=== PATIENT | male | born 1970 | race Caucasian/White ===

== ENCOUNTER 2019-01-19 01:30 | Outpatient (CLI) | payer MEDICAID, SELFPAY ==
--- NOTE | 2019-01-19 07:50 | DI.RAD_ITS ---
SYMPTOM/DIAGNOSIS: M25.521, RT ELBOW PAIN RIGHT ELBOW: There are no prior comparison exams. There is no evidence of acute or old fracture. No joint effusion is seen. The joint spaces are well maintained. IMPRESSION: Negative right elbow.
== END 2019-01-19 01:50 ==
PROVIDERS: PCP Internal Medicine; Visit Provider Specialist/Technologist Athletic Trainer
DX: M25.521 Pain in right elbow (principal)
CPT/HCPCS: 73080

== ENCOUNTER 2021-06-08 17:42 | Emergency (ER) | payer OTHER, SELFPAY ==
[2021-06-08 17:59] VITALS: BP 127/76; PULSE 68; RESP 16; TEMP 36.6; O2SAT 99
--- NOTE | 2021-06-08 18:15 | DI.RAD_ITS ---
Exam(s) XR ELBOW LT COMPLETE EXAM: XR ELBOW LT COMPLETE CLINICAL HISTORY: Injury x 1 week, R/O Fracture. TECHNIQUE: 2D digital imaging was performed. COMPARISON: CR XR elbow RT complete from 01/19/2019 FINDINGS: BONES: No acute fracture is present. No bony destructive lesion is seen. JOINTS: The elbow is normally aligned. No joint effusion is seen. SOFT TISSUE: Normal. IMPRESSION: Unremarkable radiographs of the left elbow. DATA REPOSITORY: RADIATION DOSE DELIVERED:
--- NOTE | 2021-06-08 19:28 | DI.VRAD_ITS ---
PROCEDURE INFORMATION: Exam: XR Left Elbow Exam date and time: 06/08/2021 6:17 PM Age: 51 years old Clinical indication: Other: Injury x 1wk TECHNIQUE: Imaging protocol: XR Left elbow. Views: 3 or more views. COMPARISON: No relevant prior studies available. FINDINGS: Bones/joints: Normal. Soft tissues: Normal. IMPRESSION: No acute findings. Dictated and Authenticated by: Brody Lemus MD. Ordering:ALEJANDRO Mustafa MD
--- NOTE | 2021-06-08 19:49 | ED.GENADUL_ITS ---
Discharge Plan Disposition Patient Disposition: HOME Condition: Stable Discharge Details Clinical Impression: Other sprain of left elbow, initial encounter Primary Care Provider: Sharad Sauceda ED Provider: Moon Esparza Home Meds and New Rx's Prescriptions: No Action naproxen sodium [Aleve] 220 MG tablet 220 mg PO PRN PRNRF: 0 Discharge Instructions Instructions: Elbow Sprain (ED) Additional Instructions: Today the x-rays show no acute bony abnormality. Radiologist will do an overread within the next 12 to 24 hours. Rest ice compression elevation. Wear the sling for comfort. You are placed on orthopedic follow-up list if needed call them in 1 to 2 weeks if continued pain. After 2 to 3 days do some light stretches of your elbow. Please take Tylenol or Ibuprofen with food every 4-6 hours as needed for pain and swelling. Follow up with primary care provider in 3-5 days. Return to ED sooner if any worsening or concerns. Increase oral fluids. Referrals: Sharad Sauceda MD [Primary Care Provider] - 5 days Medical Decision Making 51-year-old male presents to the ER with left elbow pain status post lifting a piece of heavy equipment up onto lawOpaxower, he heard a pop and patient has had increased pain with flexion extension and supination. He did not take any Tylenol ibuprofen prior to arrival. Distal pulses and circulation movement intact wrist intact flexion extension. No obvious deformity. Discussed x-ray results with show no acute abnormality. We will give him a sling instructed to take Tylenol ibuprofen and follow-up with orthopedics. I do suspect a strain or sprain at this time. Imaging protocol: XR Left elbow. Views: 3 or more views. COMPARISON: No relevant prior studies available. FINDINGS: Bones/joints: Normal. Soft tissues: Normal. IMPRESSION: No acute findings. Thank you for allowing us to participate in the care of your patient. Dictated and Authenticated by: Brody Lemus MD This text was generated using [employer] system, please disregard any oddities of phrase or misspellings. HPI General Mode of arrival: ambulatory . Date/Time Provider Initiated Documentation: 06/08/21 18:04 . Limitations to Documentation: no limitations . Information obtained by: patient . HPI Narrative: 51-year-old male presents to the ER with left elbow pain status post lifting a piece of heavy equipment up onto lawnmower, he heard a pop and patient has had increased pain with flexion extension and supination. He did not take any Tylenol ibuprofen prior to arrival. Distal pulses and circulation movement intact wrist intact flexion extension. No obvious deformity. Related Data Home Medications Medication Instructions Recorded Confirmed naproxen sodium [Aleve] 220 mg PO PRN PRN 04/03/14 06/08/21 Allergies Allergy/AdvReac Type Severity Reaction Status Date / Time No Known Allergies Allergy Unverified 06/08/21 18:02 General Stated Complaint: Orthopedic WILI: 4 Review of Systems All systems reviewed & are unremarkable except as noted in HPI and below ENT Ears, Nose, Mouth, and Throat: Denies neck pain Musculoskeletal Musculoskeletal: Reports as per HPI, Denies deformity, Reports arthralgias (Left Elbow), Denies neck pain, Denies numbness and Reports stiffness Neurologic Neurologic: Denies numbness PFSH Social History Smoking/Tobacco Use Status: Current every day Smoking risk assessment performed?: Yes Drug use: Never Exam Const General: cooperative, healthy appearing, well developed and well groomed Nutritional Appearance: average body habitus Orientation: alert, awake and oriented x3 Extrem General: normal to inspection, capillary refill normal and no joint enlargement Right upper extremity: normal to inspection Left upper extremity: normal to inspection, normal capillary refill and elbow/forearm Details: tenderness Location: of the olecranon, of the lateral epicondyle Details: with resisted supination and of the medial epicondyle Details: with resisted supination; no edema Course Vital Signs Vital signs: Vital Signs Temperature 36.6 C 06/08/21 17:59 Pulse 68 06/08/21 17:59 Respiratory Rate 16 06/08/21 17:59 Blood Pressure 127/76 06/08/21 17:59 Pulse Oximetry 99 06/08/21 17:59 Temperature 36.6 C 06/08/21 17:59 Temperature Source Skin 06/08/21 17:59 Pulse 68 06/08/21 17:59 Respiratory Rate 16 06/08/21 17:59 Respiratory Effort Non-Labored 06/08/21 17:59 Blood Pressure 127/76 06/08/21 17:59 Blood Pressure Position Sitting 06/08/21 17:59 Pulse Oximetry 99 06/08/21 17:59 Oxygen Delivery Method Room Air 06/08/21 17:59 Oxygen Flow Rate 0 06/08/21 17:59 Pain Level 8 06/08/21 17:59
[2021-06-08 19:57] VITALS: BP 160/84; PULSE 65; RESP 20; TEMP 36.7; O2SAT 98
== END 2021-06-08 19:58 | disposition home or self-care (01) ==
PROVIDERS: Emergency Provider Registered Nurse Emergency; PCP Internal Medicine
DX: S53.492A Other sprain of left elbow, initial encounter (principal); X50.0XXA Overexertion from strenuous movement or load, initial encounter
CPT/HCPCS: 99283; 73080

== ENCOUNTER 2021-07-08 14:09 | Inpatient (IN) | payer OTHER, SELFPAY ==
[2021-07-08] VITALS (7 sets, daily range): BP systolic 91–139; BP diastolic 51–86; PULSE 56–72; RESP 14–18; TEMP 35.6–37; O2SAT 94–100; BMI 27.0
--- NOTE | 2021-07-08 14:00 | DI.RAD_ITS ---
Exam(s) XR TIB/FIB LT EXAM: XR TIB/FIB LT CLINICAL HISTORY: fall. TECHNIQUE: 2D digital imaging was performed. COMPARISON: No exams were available for comparison FINDINGS: There is a spiral fracture at the junction of the mid and distal thirds of the tibia with mild displa cement. There is also an oblique fracture in the proximal fibula involving the neck and proximal myke physis. There is no obvious tibial plateau fracture. IMPRESSION: Fractures of the tibia and fibula as described above. DATA REPOSITORY: RADIATION DOSE DELIVERED:
[2021-07-08] MEDS: fentaNYL 100 MCG/2 ML VIAL IVP (14:17)
--- NOTE | 2021-07-08 14:41 | ED.GENADUL_ITS ---
Discharge Plan Disposition Patient Disposition: [facility] Condition: Stable Discharge Details Clinical Impression: Left tibial fracture, Closed fracture of fibula, proximal, left Admit Date/Time: 07/08/21 19:54 Admit Provider: Andrew Bo Attending Provider: Andrew Bo Primary Care Provider: Sharad Sauceda ED Provider: Moon Esparza Discharge Data Discharge Date/Time-TO BE ENTERED AT DEPARTURE: 07/08/21 17:42 Medical Decision Making <SARAH Benz - Last Filed: 07/09/21 08:17> Patient is a pleasant 51-year-old male presenting today with chief complaint of left lower extremity pain. He reports that prior to arrival he fell on ice and injured his LLE. Has not been able to move leg or ambulate since. EMS noted deformity. He denies striking his head. No loss of consciousness. Denies any neck pain, back pain, shortness of breath. He states that he has chronic pain in his left shoulder and left elbow which he is being evaluated for an upcoming weeks. No acute change in his, did not strike his at the time of the incident. Patient denies any numbness or tingling in the left lower extremity. On exam, patient appears uncomfortable. Exam of his head, neck, chest and abdomen pelvis unremarkable. No saddle paresthesias. No spinal tenderness. He does have a notable prominence of the left lower extremity with foot externally rotated almost 90 degrees compared to the knee. Deformity appears to be at midshaft. No open wounds. 2+ distal, patient is able to move toes and sensation is intact in his foot. Patient was given 100 mcg of IM fentanyl. He had had IV fentanyl prior to arrival. Patient works it was removed and towel splint applied which signi ficantly improved discomfort. Reviewed the x-ray, concern for displaced midshaft tibia fracture as well as a proximal fibula fracture. Have requested consultation of Dr. Alexander with orthopedics. Dr. Alexander reviewed the XR. He advised CT of ankle. Will perform surgery for fixation tonight or tomorrow morning. Discussed recommendation with the patient. He is agreeable to this plan. 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 Spoke with patients , Tiffany, at patients request. She prefers home # [phone]. Cell phone [phone]. At the end of my shift, care transioned to Moon Esparza NP with imaging and disposition pending. <Moon Esparza - Last Filed: 07/08/21 18:10> Care assumed from provider (SARAH Solano) Please see their initial HPI, PE, and documentation. Discussed patient details and case and pending workup and disposition. Patient is hemodynamically stable, and alert and oriented. At this point we are awaiting the OR at approximately 5 PM. 1642: Dr Alexander with Orthopedics here at for patient evaluation. 1736: OR anesthesia and staff here for patient evaluation. Patient transferred to OR in hemodynamically stable condition. HPI <SARAH Benz - Last Filed: 07/09/21 08:17> General Mode of arrival: EMS . Date/Time Provider Initiated Documentation: 07/08/21 14:09 . Limitations to Documentation: no limitations . Information obtained by: patient, EMS and RN notes reviewed . History of Present Illness 51 year old M presents to the emergency department with the chief complaint of LLE pain, deformity after fall, described as severe, with intensity rated at 8. Quality is described as sharp, and is localized to the left and lower extremity. Patient reports no radiation. Patient started experiencing this hour(s) (1) and it has been constant. Immobilization improves symptom(s), Movement worsens symptoms . Patient notes no other symptoms.. Patient did receive the following treatments prior to arrival, other (fentanyl) Related Data Home Medications Medication Instructions Recorded Confirmed naproxen sodium [Aleve] 220 mg PO PRN PRN 04/03/14 07/08/21 Allergies Allergy/AdvReac Type Severity Reaction Status Date / Time No Known Allergies Allergy Unverified 07/08/21 14:18 General Stated Complaint: Orthopedic WILI: 3 Review of Systems <SARAH Benz - Last Filed: 07/09/21 08:17> Constitutional Constitutional: Reports as per HPI, Denies chills, Denies fever(s) and Denies headache(s) Eyes Eyes: Reports as per HPI, Denies change in vision and Denies loss of vision ENT Ears, Nose, Mouth, and Throat: Denies headache(s) Cardiovascular Cardiovascular: Reports as per HPI, Denies chest pain and Denies dyspnea Respiratory Respiratory: Reports as per HPI, Denies cough, Denies pain on inspiration and Denies dyspnea Gastrointestinal Gastrointestinal: Reports as per HPI, Denies abdominal pain, Denies nausea and Denies vomiting Genitourinary Genitourinary: Reports as per HPI and Denies urinary incontinence Musculoskeletal Musculoskeletal: Reports as per HPI Integumentary/Breasts Skin/Breast: Reports as per HPI and Denies rash Neurologic Neurologic: Reports as per HPI, Denies abnormal movements, Denies abnormal speech, Denies headache(s), Denies lack of coordination, Denies localized weakness, Denies loss of vision and Denies paresthesias PFS <SARAH Benz - Last Filed: 07/09/21 08:17> Active Problem List (Updated 07/08/21 @ 17:33 by Sharad Alexander MD) Closed fracture of fibula, proximal, left (Acute) Lateral epicondylitis, left elbow (Acute) Medical History (Updated 07/08/21 @ 17:33 by Sharad Alexander MD) Left tibial fracture Social History (Updated 07/08/21 @ 17:09 by Sharad Alexander MD) Smoking/Tobacco Use Status: Current, status unknown Smokeless tobacco user: other Smoking risk assessment performed?: Yes Alcohol Intake: never Drug use: Never Substance use type: does not use Current gender identity: male Do you feel safe at home: Yes Do you feel safe in your relationship?: Yes Exam <SARAH Benz - Last Filed: 07/09/21 08:17> Const General: cooperative, healthy appearing, uncomfortable, no acute distress, well developed and well groomed Nutritional Appearance: average body habitus and well nourished Orientation: alert, awake and oriented x3 [facility] Head: normal to inspection, no palpable skull fracture, normocephalic and atraumatic Ears: hearing grossly normal bilaterally General nose exam: external nose normal Mouth: oral mucosae normal, lip normal and tongue normal Throat: posterior oropharynx normal Eyes General: appearance normal, both eyes and all related structures Alignment and Position: alignment normal Periorbital: periorbital findings normal Conjunctivae: conjunctivae normal Pupils: PERRL EOM: EOM intact bilaterally Neck Neck: normal visual inspection, full ROM, trachea midline and supple Chest Chest: normal inspection of the chest, normal palpation of entire chest wall, no crepitus and no localized rib tenderness Resp Effort & Inspection: normal respiratory effort, able to speak in complete sentences and no respiratory distress Auscultation: clear to auscultation bilaterally, no rales, no rhonchi and no wheezes Cardio Rate: regular rate Rhythm: regular rhythm Heart Sounds: S1 normal and S2 normal GI Inspection: normal to inspection, no abdominal wall ecchymosis, no edema and non-distended Palpation: soft, not rigid and nontender Auscultation: normal bowel sounds Back/Spine/Pelvis Cervical Spine: normal cervical lordosis and cervical ROM normal Pelvis: no pain with anterior-posterior compression and no pain with lateral compression Skin General skin exam: no rashes or lesions noted Lesions: no lesions Rashes: no rashes Trauma: no lacerations or abrasions Wounds: no wounds Neuro General: patient alert, patient awake, patient oriented x3, gait normal, tone normal and moves all extremities Cranial Nerves: CN's II-XI intact bilaterally Cognition: normal cognition Speech: speech normal Gait: gait abnormal Motor: muscle tone normal throughout and strength 5/5 throughout Sensory Exam: no sensory deficits noted (no saddle paresthesias) Extrem General: capillary refill normal and no calf tenderness Ankle/foot/toe images: 1. Deformity noted. External rotation of the foot compared to alignment of the knee. Sensation intact. Intact capillary refill. Able to move toes. No pain with palpation about the knee Psych Appearance: grossly normal and well kempt Mental Status: mental status grossly normal Speech and Movement: speech and movement normal Course <SARAH Benz - Last Filed: 07/09/21 08:17> Vital Signs Vital signs: Vital Signs Temperature 37.0 C 07/08/21 14:09 Pulse 70 07/08/21 14:09 Respiratory Rate 14 07/08/21 14:09 Blood Pressure 139/86 07/08/21 14:09 Pulse Oximetry 98 07/08/21 14:09 Temperature 37.0 C 07/08/21 14:09 Temperature Source Temporal Artery Scan 07/08/21 14:09 Pulse 70 07/08/21 14:09 Respiratory Rate 14 07/08/21 14:09 Blood Pressure 139/86 07/08/21 14:09 Blood Pressure Position Supine 07/08/21 14:09 Pulse Oximetry 98 07/08/21 14:09 Oxygen Delivery Method Room Air 07/08/21 14:09 Oxygen Flow Rate 0 07/08/21 14:09 Pain Level 8 07/08/21 14:17 Sign Out <SARAH Benz - Last Filed: 07/09/21 08:17> Sign Out Data: Sign Out Comment: Care transitioned to Moon Esparza NP. Patient has displaced tib/fib fracture after fall. NPO since yesterday. Planning for OR at 5pm. May need pain meds. Has had 100mcg Fentanyl and 1000mg APAP. COVID pending. Last updated by Roxi Pedraza PA at 07/08/21 16:01
--- NOTE | 2021-07-08 15:03 | DI.VRAD_ITS ---
PROCEDURE INFORMATION: Exam: XR Left Tibia and Fibula Exam date and time: 07/08/2021 2:13 PM Age: 51 years old Clinical indication: Pain; Ankle; Left; Patient HX: Fall TECHNIQUE: Imaging protocol: XR Left tibia and fibula. Views: 2 views. COMPARISON: CR LEFT FOOT COMPLETE 02/04/2016 9:11 PM FINDINGS: Bones/joints: There is a spiral fracture of the distal tibial shaft. There appears to be mild comminution and minimal impaction. There is minimal anterior offset. There is an oblique fracture of the proximal fibula. Soft tissues: Normal. IMPRESSION: Proximal fibular and distal tibial fractures. Dictated and Authenticated by: Akilah Barahona MD. Ordering:KAYODE Diane MD
[2021-07-08] MEDS: Lactated Ringers 1,000 ML 250 ML IV (15:04)
[2021-07-08] MEDS: ACETAMINOPHEN 1,000 MG/100 ML BTL 400 MG IVPB (15:15)
[2021-07-08 15:47] LABS: Source Nasal/Nares
--- NOTE | 2021-07-08 16:13 | W.ANESPRE ---
General Info Date of Service Date Performed: 07/08/21 Height: 5 ft 6 in Weight: 76 kg Body Mass Index (BMI): 27.0 Meds Allergies and Home Medications Allergies Allergy/AdvReac Type Severity Reaction Status Date / Time No Known Allergies Allergy Unverified 07/08/21 14:18 Home Medication Medication Instructions Recorded naproxen sodium [Aleve] 220 mg PO PRN PRN 04/03/14 Current Visit Medications: Current Medications Generic Name Dose Route Start Last Admin Trade Name Freq PRN Reason Stop Dose Admin Ringer's Solution 1,000 mls @ 250 mls/hr 07/08/21 14:12 07/08/21 15:04 IV 07/08/21 18:11 250 mls/hr BOLUS ONE Administration PFS Active Problems Active Problems: Problem Status Onset Code Lateral epicondylitis, left elbow M77.12 Medical History Active Problem List Lateral epicondylitis, left elbow (Acute) Tobacco Smoking/Tobacco Use Status: Former Tobacco Use Alcohol Alcohol Intake: never Substance Use Substance use: Never Substance use type: does not use Vital Signs and Lab Results Vital Signs Most Recent Vital Signs in EMR: Most Recent Vital Signs Temp Pulse Resp BP Pulse Ox 37.0 C 70 14 139/86 98 07/08/21 14:09 07/08/21 14:09 07/08/21 14:09 07/08/21 14:09 07/08/21 14:09 Lab Results Blood Type / Crossmatch: No Data to Display Complete Blood Count: No Data to Display Complete Metabolic Panel: No Data to Display Liver Function Panel: No Data to Display Coagulation Panel: No Data to Display Cardiac Panel: No Data to Display Arterial Blood Gas: No Data to Display Venous Blood Gas: No Data to Display Pancreas Panel: No Data to Display Thyroid Panel: No Data to Display Infectious Disease: Coronavirus (COVID-19)(PCR) POSITIVE (Negative) A* 07/08/21 15:19 07/08/21 Coronavirus 2019 Source Nasal/Nares 07/08/21 15:19 07/08/21 Blood Cultures: No Data to Display Toxicology Panel: No Data to Display Anesthesia Assessment and Plan Anesthesia History Personal History: No History of Anesthesia Complications Family History: No Family History of Anesthesia Complications Exercise Tolerance Exercise Tolerance: Metabolic Equivalents>4 Cardiac & Pulmonary Exam Cardiac Exam: Normal S1/S2 Heart Sounds Pulmonary Exam: Clear Bilateral Breath Sounds Implantable Cardiac Device Does patient have a Pacemaker or an ICD?: No Airway Exam Known Difficult Airway: No Mallampati Class: 3 Mouth Opening: Narrow (< 3cm) Thyromental Distance: Greater than 3 cm Facial Hair: Full Hitchcock Neck Range of Motion: Full ROM Neck Circumference: Normal Teeth Condition: Generalized Poor Dentition ASA Classification ASA Score: ASA 2 Emergency Case?: Yes NPO Status NPO Status: NPO Clears >2 hours, Solids >8 hours Anesthesia Plan Resuscitation Status: Full Code Anesthesia Technique: General Anesthesia Airway Planned: Endotracheal Tube Monitors Used: Standard Monitors Preoperative Comments:: 51 yo male with tib/fib fracture for ORIF. COVID + Sig PMHx: former smoker, denies major cardiac/pulmonary/neuro/liver/kidney issues. Per ED may have some increasing numbness in lateral side of foot. Also that he has not tolerated movement very well. Plan: spinal. consent performed in the ED, pt agrees to proceed.
--- NOTE | 2021-07-08 16:15 | DI.CT_ITS ---
Exam(s) CT LOWER EXTREMITY LT WO EXAM: CT LOWER EXTREMITY LT WO CLINICAL HISTORY: Fracture. TECHNIQUE: Imaging Protocol: Axial computed tomography images with coronal and sagittal reformatted images were created and reviewed. CONTRAST MATERIAL: Intravenous: Omnipaque 350 Contrast volume:structured data in ml Contrast route:I V - Oral: yes / no COMPARISON: CR,XR XR TIB/FIB LT from 07/08/2021 FINDINGS: OSSEOUS: There is an oblique non comminuted fracture at the junction of the mid and distal thirds of the tibia with moderate displacement. No malleolar fractures nor widening of the mortise. Talar dome appears unremarkable. There is fracture of the fibular neck and proximal diaphysis not included in the field of view of thi s CT study. IMPRESSION: Oblique non comminuted fracture of the tibia as described above. RADIATION DOSE DELIVERED: 330.75mGy.cm Total DLP DATA REPOSITORY: All CT scans at this facility are submitted to the National Radiology Data Registry (NRDR) Dose Index Registry (DIR) with the [employer] (ACR). RADIATION OPTIMIZATION: All CT scans at this facility use at least one of these dose optimization te chniques: automated exposure control; mA and/or kV adjustment per patient size (includes targeted exa ms where dose is matched to clinical indication); or iterative reconstruction.
--- NOTE | 2021-07-08 16:30 | DI.RAD_ITS ---
Exam(s) XR TIB/FIB LT EXAM: XR TIB/FIB LT CLINICAL HISTORY: LEFT TIB/FIB FRACTURE. TECHNIQUE: 2D digital imaging was performed. COMPARISON: X-rays 07/08/2021 reviewed FINDINGS: Intraoperative fluoroscopy was provided during open reduction internal fixation surgery. See procedu re report for details Total fluoroscopy time 135 seconds Total clipped of dose 4.04mGy IMPRESSION: DATA REPOSITORY: RADIATION DOSE DELIVERED:
--- NOTE | 2021-07-08 16:39 | W.PM.HP.N ---
Date of service: 07/08/21 Time of Service: 16:40 Assessment and Plan Assessment and plan (1) Closed fracture of fibula, proximal, left: Status: Acute Assessment and plan: 51M with low energy left displaced spiral tibia fracture and proximal fibula fracture. Discussed risks and benefits of operative vs non-op treatment and patient elected to proceed with surgery. Discussed risks including but not limited to bleeding, infection, damage to nerves and vessels, need for further surgery, blood clots, stiffness, wound healing problems, malunion, nonunion, heart attack, stroke and . He signed informed consent. History of Present Illness 51M fall on ice today with leftleg injury,found to have left tibia fracture. no numbness/tingling. no prior injuries. last ate last night. no LOC or head-strike. Review of Systems Narrative: As per HPI Denies chest pain, SOB, trouble breathing [facility] Active Problem List (Updated 07/08/21 @ 17:33 by Sharad Alexander MD) Closed fracture of fibula, proximal, left (Acute) Lateral epicondylitis, left elbow (Acute) Medical History (Updated 07/08/21 @ 17:33 by Sharad Alexander MD) Left tibial fracture Social History (Updated 07/08/21 @ 17:09 by Sharad Alexander MD) Smoking/Tobacco Use Status: Current, status unknown Smokeless tobacco user: other Smoking risk assessment performed?: Yes Alcohol Intake: never Drug use: Never Substance use type: does not use Current gender identity: male Do you feel safe at home: Yes Do you feel safe in your relationship?: Yes Meds Allergies and Home Medications Allergies Allergy/AdvReac Type Severity Reaction Status Date / Time No Known Allergies Allergy Unverified 07/08/21 14:18 Home Medications Medication Instructions Recorded Confirmed Type naproxen sodium [Aleve] 220 mg PO PRN PRN 04/03/14 07/08/21 History Exam Narrative Exam Narrative: awake, alert, nad heart Rrr Lungs ctab Left lower extremity soft, compressible. silt sp/dp/t/s/s but slightly decreased dorsal and volar 3rd toe and 5th toe. EHL/FHL intact BCR in toes 2+ DP pulse Results Labs Labs: Laboratory Results - last 24 hr 07/08/21 07/08/21 15:19 15:21 COVID-19 Source Nasal/Nares Cancelled SARS-CoV-2 (PCR) Cancelled Last Vital Signs Temp 37.0 C 07/08/21 14:09 Pulse 70 07/08/21 14:09 Resp 14 07/08/21 14:09 BP 139/86 07/08/21 14:09 Pulse Ox 98 07/08/21 14:09
[2021-07-08 16:46] LABS: COVID-19 PCR POSITIVE (Negative)
--- NOTE | 2021-07-08 16:55 | DI.VRAD_ITS ---
PROCEDURE INFORMATION: Exam: CT Left Lower Extremity With Contrast Exam date and time: 07/08/2021 4:22 PM Age: 51 years old Clinical indication: Injury or trauma; Fall; Fracture, traumatic; Closed fracture; Fibula and tibia; Left TECHNIQUE: Imaging protocol: CT of the Left lower extremity with intravenous contrast was performed. Radiation optimization: All CT scans at this facility use at least one of these dose optimization techniques: automated exposure control; mA and/or kV adjustment per patient size (includes targeted exams where dose is matched to clinical indication); or iterative reconstruction. COMPARISON: CR XR TIB/FIB LT 07/08/2021 2:46 PM FINDINGS: Bones/joints: There is an oblique distal tibial fracture with mild anterior displacement. There is no significant impaction. A proximal fibular fracture is not included on this exam. Soft tissues: Normal. IMPRESSION: Distal tibial oblique fracture with minimal anterior displacement. Dictated and Authenticated by: Akilah Barahona MD. Ordering:ALEJANDRO Mustafa MD
[2021-07-08] MEDS: Bupivacaine 0.25% Pres-Free 30 ML VIAL (19:16)
--- NOTE | 2021-07-08 19:22 | W.PM.OP ---
Date of service: 07/08/21 Time of Service: 19:22 Operative Note Operative Note DATE OF PROCEDURE: 07/08/21 PRE-OP DIAGNOSIS: Left tibia and fibula fracture POST-OP DIAGNOSIS: same PROCEDURE: Intramedullary nailing left tibia SURGEON: Sharad Alexander ASSISTING SURGEON: Andrew Bo HUMAN RESOURCES BENEFITS SPECIALIST: Jitendra Clark ANESTHESIA TYPE: Local By Surgeon and Spinal Refer to Anesthesia Record ESTIMATED BLOOD LOSS: 100 COMPLICATIONS: None Patient was transported to: PACU Patient's condition: stable Implants: Synthes tibial EX nail 10 mm x 330 mm, 4 x 5.0 mm screws Indications: The patient is a 51M who presented after a fall with a left displaced tibia fracture. We discussed options for management including surgery and no surgery and he elected to proceed with IMN left tibia. Findings: Reducible tibia fracture Procedure Description: The patient was identified upon entering the room. He was marked in the ER on the LLE. He was given spinal anesthesia by the anesthesia team. He was transferred to the operative bed in supine position. All bony prominences were well-padded. The LLE was prepped/draped in usual sterile fashion and he recieved 2g Ancef and TXA prior to incision. We marked out our incision lateral over the edge of the patella going from the superior pole distally approximately 5 cm. We made 2 stab incisions distally overlying the fracture one anterior and one just off the medial crest of the tibia. We then placed a eacof-pi-ovfyx Garcia clamp and reduced the tibia and held this in place using the clamp. We confirmed the reduction using intraoperative fluoroscopy. We carried out the incision after injecting 10 cc of quarter percent bupivacaine without epinephrine. We then incised the skin using a 15 blade. We carried this down to the level of the retinaculum. This was incised staying extrasynovial. Incision in the retinaculum was carried out using a Metzenbaum scissors. We then bluntly dissected to the anterior aspect of the tibia. We marked out our starting point just medial to the lateral tibial spine and just off the anterior aspect of the plateau. We then placed our starting guidewire. We confirmed placement using intraoperative fluoroscopy. We then drilled this towards the posterior cortex of the tibia. We then used the awl in order to open the proximal tibia. We then placed the ball-tipped guidewire in the center center position distally past the fracture. We then began sequentially reaming starting from 8.5 mm and reaming up to 12 mm in diameter. We then placed the 330 mm x 10 mm diameter Synthes expert nail past the fracture. We had the guidewire placed distally center center position. Once the nail was in position and satisfied with the position we then began placing interlocking screws. I placed 2 proximal interlocking screws one direct medial to lateral and 1 anteromedial to posterior lateral. These were 5.0 millimeter screws and we used the correct length screw for each of these. We placed them after making some stab incisions in the skin and then dissecting bluntly down with a snap. We then placed 2 distal medial to lateral interlock screws using perfect cher-ae heights technique first making a stab incision and then spreading with the snap. These were also both 5.0 millimeter screws. Satisfied with position of all hardware then remove the outrigger. The wounds were then copiously irrigated. The retinaculum was closed with #1 Vicryl sutures. The subcutaneous tissues were then closed with 0 Vicryl sutures 2-0 Vicryl sutures and 3-0 Monocryl for the skin for the longitudinal incision. Stab incisions were closed with 3-0 nylon. The wounds were then dressed with Xeroform sterile gauze ABD pads web roll and a posterior well-padded splint. The patient was then awakened from anesthesia by the anesthesia team. He was then transferred to the postoperative bed and taken to the postoperative care unit in stable condition having suffered no apparent untoward events. All sponge needle instrument counts were correct at the end of the case.
[2021-07-08] MEDS: ceFAZolin 1 GM/50 ML BAG IVPB (20:30)
[2021-07-08] MEDS: Aspirin E.C. 81 MG TABEC PO (20:30)
[2021-07-08] MEDS: Acetaminophen 500 MG TAB 1000 MG PO (22:54)
[2021-07-08] MEDS: Gabapentin 300 MG CAP PO (22:55)
[2021-07-09 00:28] VITALS: BP 113/98; PULSE 75; RESP 14; TEMP 36.3; O2SAT 95
[2021-07-09] MEDS: oxyCODONE 5 MG TAB PO ×3 (03:04→11:30)
[2021-07-09] MEDS: ceFAZolin 1 GM/50 ML BAG IVPB ×2 (03:04→07:58)
[2021-07-09 04:03] VITALS: BP 124/74; PULSE 69; RESP 14; TEMP 35.7; O2SAT 94
[2021-07-09 07:56] VITALS: BP 121/77; PULSE 66; RESP 18; TEMP 36.2; O2SAT 95
[2021-07-09] MEDS: Normal Saline Flush 10 ML SYR (07:57)
[2021-07-09] MEDS: Pantoprazole 40 MG TABCR PO (07:58)
[2021-07-09] MEDS: Aspirin E.C. 81 MG TABEC PO (07:58)
--- NOTE | 2021-07-09 09:57 | W.PM.DS.N ---
DS: Diagnosis Discharge Diagnosis (1) Closed fracture of fibula, proximal, left: Start date: 07/09/21 Start time: 09:58 Status: Acute Asessment and Plan: Patient treated with left tibia IMN on 07/08/21. Plan for aspirin 81 mg bid for 4 weeks, f/u with Dr. Alexander at [facility] [place] 2 weeks with splint removal. (2) Left tibial fracture: Status: Acute Discharge Plan Disposition Patient Disposition: HOME Condition: Stable Discharge Details Reason For Visit: Fracture upper and lower end of tibia Admit Date/Time: 07/08/21 19:54 Admit Provider: Andrew Bo Attending Provider: Andrew Bo Primary Care Provider: Sharad Sauceda Hospital Course Hospital Course: The patient was admitted for left tibia fracture and treated with intramedullary nailing on 07/08/21. He did well overnight and by 07/09/21 he was tolerating PO, ambulating, pain was well-controlled, urinating and deemed medically ready for safe discharge to home. He worked with PT. Home Meds and New Rx's Prescriptions: No Action naproxen sodium [Aleve] 220 MG tablet 220 mg PO PRN PRNRF: 0 Discharge Instructions Instructions: ORIF of a Leg Fracture (DC) Additional Instructions: Patient should be non weight bearing of the left lower extremity, using crutches for ambulation. Oxycodone for pain control along with Tylenol and Aleve or Advil. ASpirin 81 mg twice daily for DVT prophylaxis. Follow-up in [address] Alexander at [facility] for splint removal, suture removal, and transition to a walker boot. Call [phone] to schedule an appointment if you do not hear from them after Wednesday 07/11. No PT until after follow-up. Activity:: NWB Left Leg Equipment/Supplies:: Crutches Diet:: As Tolerated Discharge Orders Discharge Orders: Discharge Order (Routine); Ordered 07/09/21 Ordered By: Sharad Alexander DS: Summary Time Spent with Patient providing and/or coordinating discharge services: Greater than 30 minutes Status at Discharge Functional status at discharge: uses cane/walker Overall status at discharge: patient is progressing back to baseline Mental Status: mental status grossly normal Speech and Movement: speech and movement normal Mood: congruent mood Affect: normal affect Exam Narrative Exam Narrative: Awake, Alert LLE: Tender in the knee. SILT toes. BCR toes. EHL/FHL intact. Splint intact. Psych Mental Status: mental status grossly normal Speech and Movement: speech and movement normal Mood: congruent mood Affect: normal affect DS: Data Vitals/I&O Vitals and I&O: Vital Signs Temperature 36.2 C L 07/09/21 07:56 Temperature Source Tympanic 07/09/21 07:56 Pulse 66 07/09/21 07:56 Pulse Rhythm Regular 07/09/21 09:31 Respiratory Rate 18 07/09/21 07:56 Respiratory Effort 07/09/21 09:31 Respiratory Depth Normal 07/09/21 09:31 Respiratory Pattern Normal 07/09/21 09:31 Blood Pressure 121/77 07/09/21 07:56 Blood Pressure Position Supine 07/08/21 14:09 Pulse Oximetry 95 07/09/21 07:56 Oxygen Delivery Method Room Air 07/09/21 07:56 Oxygen Flow Rate 0 07/09/21 07:56 Pain Level 3 07/09/21 08:57 Intake & Output 07/08/21 07/08/21 07/09/21 11:59 23:59 11:59 Intake Total 1150 / 1150 300 / 300 Output Total 925 / 925 Balance 1150 / 1150 -625 / -625 Weight 77.111 kg Intake: IV 1150 / 1150 50 / 50 Oral 250 / 250 Output: Urine 925 / 925 Other: Urine Color Yellow Urine Appearance Clear Clear Urine Odor None Comment assisted to edge of bed Pt able to void standing Emesis Description None Voiding Methods Urinal Data Completed and Pending Labs on day of discharge: Labs from last 24 hours 07/08/21 07/08/21 15:21 15:19 COVID-19 Source Cancelled Nasal/Nares SARS-CoV-2 (PCR) Cancelled POSITIVE A* PFSH Active Problem List (Updated 07/09/21 @ 09:57 by Sharad Alexander MD) Left tibial fracture (Acute) Closed fracture of fibula, proximal, left (Acute) Lateral epicondylitis, left elbow (Acute) Medical History (Updated 07/09/21 @ 09:57 by Sharad Alexander MD) Left tibial fracture Social History (Updated 07/08/21 @ 17:09 by Sharad Alexadner MD) Smoking/Tobacco Use Status: Current, status unknown Smokeless tobacco user: other Smoking risk assessment performed?: Yes Alcohol Intake: never Drug use: Never Substance use type: does not use Current gender identity: male Do you feel safe at home: Yes Do you feel safe in your relationship?: Yes
--- NOTE | 2021-07-09 10:40 | IN_ITS ---
Date of service: 07/09/21 Time of Service: 10:40 PT Notes Visit Reasons: Fracture upper and lower end of tibia Physical Therapy Inpatient Initial Evaluation Date: 07/09/2020 Referring Doctor: Sharad Alexander MD PT Orders: PT CONSULT: Status post Ortho surgery. Left tibia fracture. NWB LLE. Precautions: Fall. Standard. NWB on L LE with bilateral axillary crutches. COVID-19 positive. Patient Profile/Admitting Diagnosis: Rhonda is a 51-year-old male with right s piral tibial fracture and distal fibular fracture sustained from a fall and status post intramedullary nailing on postoperative day 1. PMHX: Active Problem List (Updated 07/08/21 @ 17:33 by Sharad Alexander MD) Closed fracture of fibula, proximal, left (Acute) Lateral epicondylitis, left elbow (Acute) Medical History (Updated 07/08/21 @ 17:33 by Sharad Alexander MD) Left tibial fracture Social History/Home Situation: Lives with in a private home with a ramp to enter that leads onto a porch and 2 steps to the main entry of the house. Indep endent with all aspects of ADLs prior to surgery. 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 Equipment Owned/DME: None Subjective: Reports pain in the front part of the left knee with sit to stand movement transitions. Pain level 2?3/10 pain that subsides with rest. Objective: General Observation: Supine in bed. TALITA wraps over posterior LE splint. TEDs on right leg. Mental Status: Alert and oriented as to person, place, time, and purpose. Able to pay attention, focus, and respond appropriately. Pain: 2?3/10 in left knee ROM: Right Upper Extremity: Shoulder Flexion WFL. Shoulder abduction WFL. Elbow flexion WFL. Wrist flexion WFL. Functional opening and closing of hand WFL. Left Upper Extremity: Shoulder Flexion WFL. Shoulder abduction WFL. Elbow flexion WFL. Wrist flexion WFL. Functional opening and closing of hand WFL. Right Lower Extremity: Hip flexion WFL. Hip abduction WFL. Knee flexion WFL. Ankle dorsiflexion WFL. Ankle plantarflexion WFL. Left Lower Extremity: Hip flexion WFL. Hip abduction WFL. Knee flexion NTL. Ankle dorsiflexion NT. Ankle plantarflexion NT. Strength: Right Upper Extremity: Shoulder flexors 5/5. Shoulder abductors 5/5. Elbow flexors 5/5. Elbow extensors 5/5. Development Coach strong. Left Upper Extremity: Shoulder flexors 5/5. Shoulder abductors 5/5. Elbow flexors 5/5. Elbow extensors 5/5. Development Coach strong. Right Lower Extremity: Hip flexors 5/5. Hip abductors 5/5. Knee flexors 5/5. Knee extensors 5/5. Ankle dorsiflexors 5/5. Ankle plantarflexors 5/5. Left Lower Extremity: Hip flexors 3/5. Hip abductors 3/5. Knee flexors NT. Knee extensors NT. Ankle dorsiflexors NT. Ankle plantarflexors NT. Bed Mobility/Transfers: Supine to sit with supervision with minimal verbal cues for using right LE to help left LE to slide legs onto the edge bed to minimize pain. Sit to supine supervision with minimal verbal cues for using right LE to help left LE to slide legs onto the edge bed to minimize pain. Sit to stand with supervision with minimal verbal cues for putting both crutches on the right side where patient can push off to stand. Stand to sit with supervision with minimal verbal cues for putting both crutches on the right side, reaching behind with the left hand for edge of bed, and making sure to slide left LE so there is less bending at the knee during his descent onto bed/chair. Bed to chair with supervision with minimal verbal cues for putting both crutches on the right side where patient can push off to stand. Gait: Instructed patient with level surface ambulation of 30 feet requiring supervision assist using bilateral axillary crutches with three-point gait pattern to ensure non-weightbearing on the left LE. Carli decreased. Reported pain in the left LE at 2?3/10. Demonstrates good compliance with non- weightbearing precaution. Balance: Static Sitting: Normal Dynamic Sitting: Normal Static Standing: Fair with bilateral axillary crutches Dynamic Standing: Fair with bilateral axillary crutches Special Tests: Mobility Limitations Standardized Measure [facility] AM-PAC 6 clicks Basic Mobility Inpatient Short Form: Raw Score: 23 CMS Score: 11% deficit Informed Consent/Education: Patient was instructed in purpose of PT consult and plan of care. Agreeable to proceed with established PT POC to achieve personal goals. Assessment: Rhonda requires the use of bilateral axillary crutches to reduce fall risk and maximize independence with mobility ADL performance. Pain minimally limiting mobility ADL performance. COVID-19 positive. Patient presents with clinical signs and symptoms consistent with current/admitting diagnoses that have resulted to mobility limitations, gait instability and overall ADL decline as demonstrated by the following impairment level findings: 1. Decreased strength to left leg major muscle groups 2. Impaired sitting/standing balance 3. Impaired activity tolerance 4. Inability to put weight on the left LE per orthopedic surgeon recommendation Impairments are contributing to the following functional limitations: 1. Decline in bed mobility skills 2. Decline in transfer skills 3. Difficulty with ambulation without assistive device and physical assistance 4. Increased completion time for mobility ADL performance 5. Increased risk for falls 6. Difficulty with managing steps alone safely Patient is assessed as a 18399 moderate complexity based on the following: History: 51-year-old male with past medical history as indicated above Examination: Demonstrable impairment in strength, balance, and mobility level with underlying impairments and functional limitations as exhibited above as well as deficit score of 11% utilizing the [facility] Mobility Inpatient Short Form Presentation: Evolving Decision Makin moderate complexity Goals: N/A. PT evaluation and 1 treatment session only for functional mobility training using bilateral axillary crutches and safety recommendations. Plan of Care/Treatment Plan: N/A. PT evaluation and 1 treatment session only for functional mobility training using bilateral axillary crutches and safety recommendations. DISCHARGE RECOMMENDATIONS: [] Home with no services [] [X] Home with services. Home when medically cleared by orthopedic surgeon. May benefit from outpatient services in order to facilitate return to independent community ambulation without assistive device and promote return to full vocational activities. [] Home with outpatient PT [] [] SNF for continued rehabilitation [] [] [facility] [] [] SNF versus LTC based on ability to participate and progress [] TREATMENT CODE/TIME: 42266 x 20 minutes, 15198 x 60 minutes beginning at 10:40 AM. Thank you for the opportunity to participate in the care of this patient. Bree Montes De Oca PT, DPT, CLT [facility] [place], [place]
--- NOTE | 2021-07-09 12:47 | W.ANESPOSTOP ---
Postoperative Evaluation Date, Time and Location Date Performed: 07/08/21 Time Performed: 20:05 Patient Location: Med/Surg Vital Signs Most Recent Imported Vital Signs: Most Recent Vital Signs Temp Pulse Resp BP Pulse Ox 36.2 C L 66 18 121/77 95 07/09/21 07:56 07/09/21 07:56 07/09/21 07:56 07/09/21 07:56 07/09/21 07:56 Pain Score Most Recent Pain Score: Most Recent Pain Score Pain Level [Left Lower leg] 8 07/08/21 14:48 Pain Level 3 07/09/21 11:30 Assessment Mental Status: Awake (Alert & Oriented to Patient Baseline) Airway and Respiratory Function: Patent airway with normal (patient baseline) respiratory exam Cardiovascular Function: Hemodynamically Stable Hydration Status: Adequately Hydrated Nausea & Vomiting: No Nausea or Vomiting Pain: Pt. Denies Any Pain Peripheral Nerve Block: Other (spinal not yet worn off. Still no motor. VSS throughout case. )
== END 2021-07-09 12:06 | disposition home or self-care (01) | DRG 494 ==
LOC: ER 17:24 → SUR 17:31 → ER 17:54 → MS 20:17 → ER 07-10 10:38 → MS 07-10 10:40 → SUR 07-10 10:40
PROVIDERS: Orthopaedic Surgery; Admitting Provider Student in an Organized Health Care Education/Training Program; Emergency Provider Registered Nurse Emergency; PCP Internal Medicine; Visit Provider Student in an Organized Health Care Education/Training Program
DX: S82.392A Other fracture of lower end of left tibia, initial encounter for closed fracture (principal); S82.832A Other fracture of upper and lower end of left fibula, initial encounter for closed fracture; W00.0XXA Fall on same level due to ice and snow, initial encounter; Z20.822 Contact with and (suspected) exposure to COVID-19
CPT/HCPCS: 27759; 87635; 96361; 96374; 96375; 97162; 97530; 99285; 73590; 73700; J0131; J0690; J1100; J2001; J2250; J2405; J2704; J3010

== ENCOUNTER 2024-07-15 10:49 | Outpatient (REF) | payer SELFPAY ==
[2024-07-15 14:47] LABS: Abs Immature Grans 0.03 10^3/uL (0.0-0.06); Absolute Basophil Count 0.13 10^3/uL (0.0-0.2); Absolute Eosinophil Count 0.33 10^3/uL (0.0-0.7); Absolute Lymphocyte Count 2.96 10^3/uL (1.2-3.4); Absolute Monocyte Count 0.76 10^3/uL (0.1-0.8); Basophils % 1.3 %; Eosinophils % 3.4 %; HCT 44.9 % (40.0-50.0); HGB 14.8 g/dL (13.5-17.5); Immature Grans % 0.3 %; Lymphocytes % 30.2 %; MCH 28.8 pg (27.0-33.0); MCV 88 fL (80-95); MPV 9.4 fL (8.0-11.0); Monocytes % 7.7 %; Neutrophils % 57.1 %; Platelet Count 338 10^3/uL (130-400); RBC 5.13 10^6/uL (4.36-5.78); RDW 12.9 % (11.8-14.1); RDW-SD 41.2 fL; WBC 9.81 10^3/uL (4.4-10.8)
[2024-07-15 15:07] LABS: ALT 47 U/L (16-63); AST 39 U/L (15-37); Albumin 3.8 g/dL (3.4-5.0); Alkaline Phosphatase 108 U/L (46-116); Anion Gap 9.8 mmol/L (3-11); BUN 19 mg/dL (7-18); Bilirubin, Total 0.42 mg/dL (0.2-1.0); CO2 24.2 mmol/L (21.0-32.0); CREATININE 1.1 mg/dL (0.70-1.30); Calcium 9.2 mg/dL (8.5-10.1); Chloride 107 mmol/L (98-107); Estimated GFR 80.27 (mL/min/1.73m2); Glucose 99 mg/dL (74-106); Lipase 47 U/L (<78); Potassium 4.6 mmol/L (3.5-5.1); Sodium 141 mmol/L (136-145); Total Protein 7.6 g/dL (6.4-8.2)
== END 2024-07-15 10:50 | disposition home or self-care (01) ==
LOC: NCHCN 10:49
PROVIDERS: PCP Internal Medicine; Visit Provider Family Medicine
DX: R10.9 Unspecified abdominal pain (principal)
CPT/HCPCS: 80053; 83690; 85025